=== PATIENT | female | born 1960 | race African-American/Black ===

== ENCOUNTER 2016-10-27 11:29 | Emergency (ER) | payer OTHER ==
[~2016-10-27] VITALS: Ht 162.6 cm; Wt 120.2 kg
[~2016-10-27 11:29] MED LIST: AMOXICILLIN500 M3 PO; AZOR 5-20 MG T1 EACH PO; AZOR 5-40 MG T1 EACH PO; CYCLOBENZAPRINE10 M1 PO; FOLIC ACID1 M1 PO; IBUPROFEN600 M1 PO; NASONEX17 GM NASB; PERCOCET 5-3251 EACH PO; PLAQUENIL200 M1 PO; TRAMADOL HCL50 M1 PO; TRAMADOL50 MG PO; VITAMIN C100 M2 PO
--- NOTE | 2016-10-27 11:54 | ED NEURO DEFICIT/STROKE ---
History of Present Illness General Chief Complaint: General Adult Stated Complaint: SENT BY MD FOR POSSIBILE TIA Source: patient, family, old records Exam Limitations: no limitations Vital Signs & Intake/Output Vital Signs & Intake/Output Vital Signs Date Time Temp Pulse Resp B/P Pulse O2 O2 Flow FiO2 Ox Delivery Rate 10/27 1317 84 18 159/77 99 Room Air 10/27 1141 Room Air 10/27 1132 97.5 89 20 172/105 97 Room Air Allergies Uncoded Allergies: RADIOLOGICAL CONTRAST MEDIA (UNKNOWN 12/19/15) Reconcile Medications Amlodipine Bes/Olmesartan Med (Kevyn 5-40 MG Tablet) 1 EACH TABLET 1 TAB PO DAILY BP (Reported) Amlodipine Bes/Olmesartan Med (Kevyn 5-20 MG Tablet) 1 EACH TABLET 1 TAB PO DAILY HIGH BLOOD PRESSURE Amlodipine Bes/Olmesartan Med (Kevyn 5-20 MG Tablet) 1 EACH TABLET 1 TAB PO DAILY HIGH BLOOD PRESSURE Amoxicillin 500 MG TABLET 1 TAB PO TID EAR INFECTION Ascorbic Acid (Vitamin C) 100 MG TABLET 1 TAB PO DAILY VITAMIN (Reported) Cyclobenzaprine HCl 10 MG TABLET 1 TAB PO Q8P PAIN OR SPASM Folic Acid 1 MG TABLET 1 TAB PO DAILY VITAMIN (Reported) Folic Acid 1 MG TABLET 1 TAB PO DAILY VITAMIN (Reported) Hydroxychlorquine (Plaquenil) 200 MG TABLET 1 TAB PO BID CONNECTIVE TISSUE ( Reported) Ibuprofen 600 MG TABLET 1 TAB PO TID PRN PAIN with food Mometasone Furoate (Nasonex) 17 GM SPRAY.PUMP 2 SPRAY NASB DAILY SINUS CONGESTION Oxycodone HCl/Acetaminophen (Percocet 5-325 MG Tablet) 1 EACH TABLET 1-2 TAB PO Q6P PRN PAIN TRAMADOL HCL (Tramadol) 50 MG TABLET 1 TAB PO Q6P PRN PAIN Tramadol HCl 50 MG TABLET 1 TAB PO Q6P PRN PAIN Triage Note: PT TO ED C/O DIZZINESS X A FEW WEEKS. STATES WHEN IS SHE STANDS UP SHE FEELS A LOUISE TO HER HEAD. PT STATES THIS AM DURING PRAYER WHEN SHE STOOD UP SHE FELT A LOUISE TO HER HEAD AND THEN LOST VISION TO HER RIGHT EYE. VISION HAS SINCE RETURNED. ALSO C/O NECK PAIN. Triage Nurses Notes Reviewed? yes Onset: Gradual Duration: week(s): (8), intermittent, resolved prior to arrival, waxing and waning Timing: recent history Severity: mild, moderate Vision Problem? Yes Glaucoma? No Baseline: alert, oriented x 3 Associated Symptoms: denies HPI: 56-year-old female history of hypertension iron deficiency anemia connective tissue disorder presents to emergency room complaining of intermittent dizziness that lasts a few seconds that comes on only upon standing for the past 2 months however become more frequent over the past 2 weeks. Patient states she was at buddhist this morning when the symptoms occurred again after standing up and she states that she lost vision in her right eye for approximately 15 seconds before completely returning to normal. Patient states she called her primary care physician who advised her to come to the ER. On arrival the patient denies any complaints. She did not take her blood pressure medication yet today. She denies any chest pain shortness of breath. It was no facial droop or difficulty finding words or speaking and no slurred speech no arm or leg weakness numbness or tingling. The patient denies any concerns at this time there is been no fever no chills no headache no change in her mental status per family (SHEILA HOWELL) Past History Travel History Traveled to [place] past 21 day No Medical History Any Pertinent Medical History? see below for history Neurological: migraine EENT: NONE Cardiovascular: hypertension Respiratory: NONE Gastrointestinal: NONE Hepatic: NONE Renal: NONE Musculoskeletal: CONNECTIVE TISSUE DISEASE Psychiatric: NONE Endocrine: NONE Blood Disorders: NONE Cancer(s): NONE Surgical History Surgical History: non-contributory Psychosocial History What is your primary language Burkinan Tobacco Use: Quit >30 days ago ETOH Use: denies use Illicit Drug Use: denies illicit drug use Family History Hx Contributory? No (SHEILA HOWELL) Review of Systems Review of Systems Constitutional: Reports: see HPI. All Other Systems: Reviewed and Negative Comments Review of systems: See HPI, All other systems negative. Constitutional, no chills no fever, no malaise HEENT: no sore throat no congestion, no ear pain Cardiovascular: No chest pain , no palpitation , no orthopnea Skin, no jaundice no rashes, no change in skin Respiratory: No dyspnea no cough no sputum no hemoptysis GI: No nausea no vomiting, no diarrhea, no bloating/constipation : No dysuria Muscle skeletal: No joint pain, no joint swelling, no back pain, no neck pain, Neurologic: No numbness no confusion, no headache Psych: No stress Heme/endocrine: No bruising no bleeding no polyuria Immunology: No lymphadenopathy (SHEILA HOWELL) Physical Exam Physical Exam General Appearance: well developed/nourished, alert, awake Cranial Nerves: normal hearing, normal speech, PERRL Coordination/Gait: normal finger to nose, normal gait Motor/Sensory: no motor/sensory deficits, neg rhomberg Reflexes: 2+: bicep (R), bicep (L), knee (R), knee (L). Comments: Well-developed well-nourished person in no acute distress HEENT: Normal EENT exam; PERRL, EOMI, no nystagmus. HEAD is atraumatic. moist mucous membranes. Neck: Supple, no lymphadenopathy, normal range of motion without pain or tenderness Back: Nontender, no CVA tenderness. Full range of motion Cardiovascular: Regular rate and rhythms no murmurs rubs or gallops, normal JVP Respiratory: Chest nontender.There were no bony deformities, no asymmetry. No respiratory distress. Patient speaking in full complete sentences. Breath sounds clear to auscultation bilaterally: NO W/R/R Abdomen: Soft, nontender nondistended, no appreciable organomegaly. Normal bowel sounds. No rebound/guarding, Extremity: No edema, full range of motion of extremities, normal and equal pulses bilaterally, 5 out of 5 strength noted to bilateral upper and lower extremities Neuro: Alert oriented x3, motor sensory normal, cranial nerves II through XII grossly intact. There were no obvious focal neurologic abnormalities. Skin: No appreciable rash on exposed skin, skin is warm and dry. Psych: Mood and affect is normal, memory and judgment is normal. Core Measures CVA/TIA Diagnosis: No Severe Sepsis Present: No Septic Shock Present: No (SHEILA HOWELL) Progress Differential Diagnosis: drug intoxication, electrolyte imbalance, encephalitis, hypoglycemia, intracranial Hem., intracranial mass/tumor, meningitis, subarachnoid Hem., vertebrobasilar insuff., vASOVAGAL, ELECTROLYTE ABNORMALITY, tia/cva Plan of Care: Orders Procedure Date/time Status MISTAKE 10/27 1237 Active VITAMIN B12 10/27 1158 Complete TROPONIN LEVEL 10/27 1157 Complete MAGNESIUM 10/27 1157 Complete COMPREHENSIVE METABOLIC PANEL 10/27 1157 Complete CBC WITHOUT DIFFERENTIAL 10/27 1157 Complete URINALYSIS 10/27 1139 Complete Laboratory Tests 10/27/16 1255: Vitamin B12 827 10/27/16 1255: Anion Gap 8, Estimated GFR > 60, BUN/Creatinine Ratio 20.0, Glucose 96, Calcium 9.3, Magnesium 1.9, Total Bilirubin 0.4, AST 22, ALT 32, Alkaline Phosphatase 78 , Troponin I < 0.01, Total Protein 7.6, Albumin 4.1, Globulin 3.5, Albumin/ Globulin Ratio 1.2, CBC w Diff NO MAN DIFF REQ, RBC 4.38, MCV 85.1, MCH 27.9, RDW 14.1, MPV 7.5, Gran % 42.6, Lymphocytes % 48.5, Monocytes % 5.5, Eosinophils % 2.5, Basophils % 0.9, Absolute Granulocytes 2.8, Absolute Lymphocytes 3.2, Absolute Monocytes 0.4, Absolute Eosinophils 0.2, Absolute Basophils 0.1, PUBS MCHC 32.8 L 10/27/16 1140: Urine Color YEL, Urine Clarity CLEAR, Urine pH 6.5, Ur Specific Clemons 1.015, Urine Protein NEG, Urine Ketones NEG, Urine Nitrite NEG, Urine Bilirubin NEG, Urine Urobilinogen 0.2, Ur Leukocyte Esterase NEG, Ur Microscopic EXAM NOT REQUIRED, Urine Hemoglobin NEG, Urine Glucose NEG Labs ordered old records reviewed 10/27/2016 1:49:23 PM patient ambulatory around the emergency room with steady gait without reproducible symptoms orthostatics are negative case was discussed with Dr. Del Rio. I discussed the patient relates all of her lab results and CAT scan findings, I discussed with her need for close follow-up with her primary care physician next week to limit caffeine use advised return anytime sooner if her symptoms return, persist or she has any other concerns she feels comfortable this plan I answered all of her questions (TYREL LANGSTON,SHEILA) Diagnostic Imaging: Viewed by Me: CT Scan. Discussed w/RAD: CT Scan. Radiology Impression: PATIENT: LEROY DRAKE PRESENT AGE: 56 PATIENT ACCOUNT NO: [id number] : 60 LOCATION: [facility] ORDERING PHYSICIAN: SHEILA LANGSTON SERVICE DATE: 10/27/16-6155 EXAM TYPE: CAT - CT HEAD WO IV CONTRAST EXAMINATION: CT HEAD WITHOUT CONTRAST CLINICAL INFORMATION: 56-year-old woman with dizziness and vision changes. COMPARISON: 04 / head CT TECHNIQUE: Contiguous axial imaging was performed from the skull base to vertex without intravenous administration of contrast. DLP: 601 mGy-cm. FINDINGS: There is apparent asymmetric hyperdensity in the region of the right transverse sinus that is unchanged in comparison to the prior study and therefore presumably of limited significance. A small focus of hypodensity near the right anterior lentiform nucleus is also unchanged. No intracranial mass, hemorrhage, midline shift, or extra-axial collection is appreciated. The ventricles and sulcal spaces are age appropriate. The paranasal sinuses are well aerated. IMPRESSION: No acute intracranial pathology. DICTATED BY: VERONICA ACE MD DATE/TIME DICTATED:10/27/161309 CHAIN LINK FENCE INSTALLER:VICKEY DATE/TIME TRANSCRIBED:10/27/161309 CONFIDENTIAL, DO NOT COPY WITHOUT APPROPRIATE AUTHORIZATION. <Electronically signed in Other Vendor System> SIGNED BY: VERONICA ACE MD 10/27/16 1316 Initial ED EKG: none (SHEILA HOWELL) Departure Departure Time of Disposition: 1346 Disposition: HOME OR SELF CARE Condition: Stable Clinical Impression Primary Impression: Vasovagal episode Referrals: ANDREW TURNER,LILLIE Bragg (PCP/Family) Additional Instructions: Follow-up with your primary care physician, ensure you are eating regularly throughout the day, limit caffeine use. return with any concerns Departure Forms: Customer Survey General Discharge Information (SHEILA HOWELL) PA/REAL ESTATE ASSET MANAGER Co-Sign Statement Statement: ED Attending supervision documentation- [] I saw and evaluated the patient. I have also reviewed all the pertinent lab results and diagnostic results. I agree with the findings and the plan of care as documented in the PA's/REAL ESTATE ASSET MANAGER's documentation. [X] I have reviewed the ED Record and agree with the PA's/REAL ESTATE ASSET MANAGER's documentation. [] Additions or exceptions (if any) to the PAs/REAL ESTATE ASSET MANAGER's note and plan are summarized below: [] (VINH TURNER,MELISSA)
[2016-10-27 13:13] LABS: ABSOLUTE BASOPHIL COUNT 0.1 /CUMM (0.0-0.2); ABSOLUTE EOSINOPHIL COUNT 0.2 /CUMM (0.0-0.7); ABSOLUTE GRANULOCYTE CT 2.8 /CUMM (1.4-6.5); ABSOLUTE LYMPH COUNT 3.2 /CUMM (1.2-3.4); ABSOLUTE MONOCYTE COUNT 0.4 /CUMM (0.10-0.60); BASOPHIL % 0.9 % (0.0-2.0); EOSINOPHIL % 2.5 % (0-5); GRANULOCYTE % 42.6 % (42.2-75.2); HEMATOCRIT 37.2 % (37-47); MEAN CORPUSCULAR HGB 27.9 PG (27.0-31.0); MEAN CORPUSCULAR HGB CONC 32.8 G/DL (33.0-37.0); MEAN CORPUSCULAR VOLUME 85.1 FL (81.0-99.0); MEAN PLATELET VOLUME 7.5 FL (7.4-10.4); PLATELET COUNT 270 /CUMM (130-400); RBC DISTRIBUTION WIDTH 14.1 % (11.5-14.5); RED BLOOD CELL CT 4.38 /CUMM (4.20-5.40); WHITE BLOOD CELL COUNT 6.6 /CUMM (4.8-10.8)
--- NOTE | 2016-10-27 13:16 | CT SCAN REPORT ---
EXAMINATION: CT HEAD WITHOUT CONTRAST CLINICAL INFORMATION: 56-year-old woman with dizziness and vision changes. COMPARISON: 01/15/[address] TECHNIQUE: Contiguous axial imaging was performed from the skull base to vertex without intravenous administration of contrast. DLP: 601 mGy-cm. FINDINGS: There is apparent asymmetric hyperdensity in the region of the right transverse sinus that is unchanged in comparison to the prior study and therefore presumably of limited significance. A small focus of hypodensity near the right anterior lentiform nucleus is also unchanged. No intracranial mass, hemorrhage, midline shift, or extra-axial collection is appreciated. The ventricles and sulcal spaces are age appropriate. The paranasal sinuses are well aerated. IMPRESSION: No acute intracranial pathology.
[2016-10-27 13:17] VITALS: BP 159/77
== END 2016-10-27 13:53 ==
LOC: ERH 11:29
PROVIDERS: Physician Assistant Medical
DX: R55 Syncope and collapse (principal); D50.9 Iron deficiency anemia, unspecified; I10 Essential (primary) hypertension; Z87.891 Personal history of nicotine dependence
CPT/HCPCS: 81003

== ENCOUNTER 2018-01-20 19:48 | Emergency (ER) | payer OTHER ==
[~2018-01-20] VITALS: Ht 162.6 cm; Wt 131.5 kg
--- NOTE | 2018-01-20 20:37 | ED CARDIAC/CP/PALPITATIONS ---
History of Present Illness General Chief Complaint: General Adult Stated Complaint: CHEST PAIN, SOB, "FLUTTER IN MY STOMACH" Source: patient, old records Exam Limitations: no limitations Vital Signs & Intake/Output Vital Signs & Intake/Output Vital Signs Date Time Temp Pulse Resp B/P B/P Pulse O2 O2 Flow FiO2 Mean Ox Delivery Rate 01/20 2034 98 Room Air 01/20 2003 97.6 79 18 120/80 98 Room Air Allergies Coded Allergies: pineapple (TONGUE NUMBNESS 01/20/18) Uncoded Allergies: RADIOLOGICAL CONTRAST MEDIA (UNKNOWN 12/19/15) Reconcile Medications Amlodipine Bes/Olmesartan Med (Kevyn 5-40 MG Tablet) 1 EACH TABLET 1 TAB PO DAILY BP (Reported) Amlodipine Bes/Olmesartan Med (Kevyn 5-20 MG Tablet) 1 EACH TABLET 1 TAB PO DAILY HIGH BLOOD PRESSURE Amlodipine Bes/Olmesartan Med (Kevyn 5-20 MG Tablet) 1 EACH TABLET 1 TAB PO DAILY HIGH BLOOD PRESSURE Amoxicillin 500 MG TABLET 1 TAB PO TID EAR INFECTION Ascorbic Acid (Vitamin C) 100 MG TABLET 1 TAB PO DAILY VITAMIN (Reported) Cyclobenzaprine HCl 10 MG TABLET 1 TAB PO Q8P PAIN OR SPASM Folic Acid 1 MG TABLET 1 TAB PO DAILY VITAMIN (Reported) Folic Acid 1 MG TABLET 1 TAB PO DAILY VITAMIN (Reported) Hydroxychlorquine (Plaquenil) 200 MG TABLET 1 TAB PO BID CONNECTIVE TISSUE ( Reported) Ibuprofen 600 MG TABLET 1 TAB PO TID PRN PAIN with food Mometasone Furoate (Nasonex) 17 GM SPRAY.PUMP 2 SPRAY NASB DAILY SINUS CONGESTION Oxycodone HCl/Acetaminophen (Percocet 5-325 MG Tablet) 1 EACH TABLET 1-2 TAB PO Q6P PRN PAIN TRAMADOL HCL (Tramadol) 50 MG TABLET 1 TAB PO Q6P PRN PAIN Tramadol HCl 50 MG TABLET 1 TAB PO Q6P PRN PAIN Triage Note: PT TO ED WITH MULTIPLE COMPLAINTS. "HAS BEEN GOING ON FOR A COUPLE OF MONTHS" PT C/O CENTER CHEST TIGHTNESS, FLUTTERING IN HER GROIN "ALL THE TIME", SOB AND TIGHTNESS IN HER THROAT. "I'VE BEEN USING MY PROAIR INAHALER FOR OVER A YEAR BUT NOW IT'S NOT HELPING ME" "I DON'T HAVE ASTHMA , I UST HAVE ALLERGIES ALL YEAR LONG" O2 SAT 98% ON RA. PT SPEAKING NON STOP IN TRIAGE. "I CAN EAT AND DRINK FINE" PT IS 290 LBS. "I JUST CAN'T SWALLOW PILLS" "I HAD A SWALLOW STUDY LAST WEEK BUT THEY GAVE ME THE BARIUM PILLS INSTEAD OF THE LIQUID SO I CHOKED ON THEM" "NOW THEY WANT ME TO HAVE AN ENDOSCOPY" "I HAVE THIS DRY HACKING COUGH" PT MADE HERSELF COUGH IN TRIAGE. "SEE, I CAN'T GET THE STUFF DOWN THERE TO MOVE" "I HAVE TO BREATHE REALLY REALLY DEEP TO GET A GOOD COUGH" VSS. NAD Triage Nurses Notes Reviewed? yes HPI: Patient presents to the emergency department with 2 separate complaints. Her first complaint is chest tightness and a squeezing sensation in her throat. Patient states the symptoms have been intermittent over the past few months however over the past few days the chest tightness has been constant and she intermittently gets a squeezing sensation in her throat. The squeezing sensation lasts just a few minutes before it goes away. There are no aggravating or mitigating factors. There is no radiation which she hasn't. It appears to be unrelated to activity. She rates it at a 4 out of 10. The chest tightness is constant over the past few days it is central. There is no radiation. There are no aggravating or mitigating factors. She rates the tightness at a 3 out of 10. She denies any shortness of breath. She does have a cough which appears to be unrelieved with pro-air. She states that cough is a dry nonproductive cough, she takes a really deep breath and cough really hard and then she is able to get up a little phlegm. There are no fevers or chills. There is no orthopnea or dyspnea on exertion. Her other complaint is a fluttering sensation in her lower abdomen. The symptoms are intermittent. The symptoms appear to started a few days after starting Acetasol line which she was put on for idiopathic intracranial hypertension. She denies any constipation or diarrhea. There is no dysuria. There is no hematuria. She denies any pain in her abdomen is just a fluttering sensation. 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 Past History Travel History Traveled to [place] past 21 day No Medical History Any Pertinent Medical History? see below for history Neurological: migraine EENT: "FLUID IN OPTIC NERVE" Cardiovascular: hypertension, HEART MURMUR Respiratory: USES ALBUTEROL INH FOR ALLERGIES Gastrointestinal: GERD Hepatic: NONE Renal: NONE Musculoskeletal: CONNECTIVE TISSUE DISEASE Psychiatric: NONE Endocrine: NONE Blood Disorders: NONE Cancer(s): NONE Surgical History Surgical History: non-contributory Psychosocial History What is your primary language Faroese Tobacco Use: Quit >30 days ago ETOH Use: denies use Illicit Drug Use: denies illicit drug use Family History Hx Contributory? No Review of Systems Review of Systems Constitutional: Reports: no symptoms. EENTM: Reports: no symptoms. Respiratory: Reports: see HPI, cough. Cardiovascular: Reports: see HPI, chest pain. GI: Reports: see HPI, abdominal pain. Genitourinary: Reports: no symptoms. Musculoskeletal: Reports: no symptoms. Skin: Reports: no symptoms. Neurological/Psychological: Reports: no symptoms. Hematologic/Endocrine: Reports: no symptoms. Immunologic/Allergic: Reports: no symptoms. All Other Systems: Reviewed and Negative Physical Exam Physical Exam General Appearance: well developed/nourished, alert, awake, anxious, mild distress Head: atraumatic, normal appearance Eyes: Bilateral: PERRL, EOMI. Ears, Nose, Throat: normal pharynx, normal ENT inspection, hearing grossly normal Neck: normal inspection, supple, full range of motion Respiratory: normal breath sounds, chest non-tender, no respiratory distress, lungs clear Cardiovascular: regular rate/rhythm, normal peripheral pulses Gastrointestinal: normal bowel sounds, soft, non-tender, no organomegaly Back: normal inspection, normal range of motion Extremities: normal inspection, normal capillary refill, normal range of motion, no edema Neurologic/Psych: no motor/sensory deficits, awake, alert, oriented x 3, normal gait, normal mood/affect Skin: intact, normal color, warm/dry Lymphatic: no anterior cervical darren Core Measures ACS in differential dx? No CVA/TIA Diagnosis No Sepsis Present: No Sepsis Focused Exam Completed? No Progress Differential Diagnosis: AMI, atrial fibrillation, cholecystitis, costochondritis , hyperthyroid, musculoskeletal pain, myocarditis, pericarditis, pneumonia, pneumothorax Plan of Care: Orders Procedure Date/time Status URINALYSIS 01/21 2036 Active TROPONIN LEVEL 01/21 2036 Complete MAGNESIUM 01/21 2036 Complete COMPREHENSIVE METABOLIC PANEL 01/21 2036 Complete CBC WITHOUT DIFFERENTIAL 04/30 2036 Complete EKG 01/21 1952 Active Laboratory Tests 01/20/182049: Anion Gap 11, Estimated GFR > 60, BUN/Creatinine Ratio 13.3, Glucose 96, Calcium 9.3, Magnesium 2.2, Total Bilirubin 0.4, AST 20, ALT 27, Alkaline Phosphatase 65 , Troponin I < 0.01, Total Protein 7.7, Albumin 4.4, Globulin 3.3, Albumin/ Globulin Ratio 1.3, CBC w Diff MAN DIFF ORDERED, RBC 4.28, MCV 86.4, MCH 27.7, MCHC 32.0 L, RDW 14.0, MPV 7.6, Gran % 42.0 L, Lymphocytes % 47.4, Monocytes % 7.2, Eosinophils % 2.6, Basophils % 0.8, Absolute Granulocytes 3.8, Segmented Neutrophils 43, Absolute Lymphocytes 4.3 H, Lymphocytes 45, Monocytes 8, Absolute Monocytes 0.6, Eosinophils 3, Absolute Eosinophils 0.2, Basophils 1, Absolute Basophils 0.1, Platelet Estimate ADEQUATE, Hypochromic-Microcytic 1+, Anisocytosis 1+ Diagnostic Imaging: Viewed by Me: Radiology Read, CT Scan. Discussed w/RAD: Radiology Read, CT Scan. Radiology Impression: PATIENT: LEROY DRAKE PRESENT AGE: 57 PATIENT ACCOUNT NO: [id number] : 60 LOCATION: [facility] ORDERING PHYSICIAN: Taz Dominguez MD SERVICE DATE: 01/20/18 EXAM TYPE: CAT - CT ABD & PELVIS W/O IV CONTRAS EXAMINATION: CT ABDOMEN AND PELVIS WITHOUT CONTRAST CLINICAL INFORMATION: Left lower quadrant pain. COMPARISON: CT scan abdomen pelvis 01/15/2016 TECHNIQUE: Multidetector volumetric imaging was performed from the superior aspect of the liver through the pubic symphysis. Sagittal and coronal reformatted images were obtained on the technologist's workstation. DLP: 1406.98 mGy-cm FINDINGS: LUNG BASES: The visualized lung bases are unremarkable. LIVER, GALLBLADDER, AND BILIARY TREE: The liver is normal in size, shape, and attenuation. No focal hepatic lesion or biliary ductal dilatation is present. The gallbladder is unremarkable with no evidence of radiopaque gallstones, gallbladder wall thickening, or obvious pericholecystic inflammatory changes. PANCREAS: Unremarkable. SPLEEN: Unremarkable. ADRENAL GLANDS: Unremarkable. KIDNEYS AND URETERS: The kidneys are normal in size, shape , and attenuation. No hydronephrosis, hydroureter, or calculi seen. No perinephric stranding. BLADDER: Unremarkable. GASTROINTESTINAL TRACT: The small and large bowel are unremarkable. No diverticula. No bowel wall thickening or edema. Moderate amount of scattered stool in the colon. The appendix is normal. Small bowel loops are unremarkable. There is a surgical clip in the right lower quadrant ABDOMINAL WALL: No significant hernia is appreciated. LYMPH NODES: Normal. VASCULAR: Unremarkable. PELVIC VISCERA: Unremarkable. OSSEOUS STRUCTURES : Degenerative spondylosis spine with multilevel endplate spurring and disc height narrowing and facet joint arthrosis. Vacuum disc phenomena L4-L5 and L2- L3. IMPRESSION: No acute abnormality CT scan abdomen pelvis. DICTATED BY: Noel Hale MD DATE/TIME DICTATED:01/20/182236 DIE ASSEMBLER:VICKEY DATE/ TIME TRANSCRIBED:01/20/182236 CONFIDENTIAL, DO NOT COPY WITHOUT APPROPRIATE AUTHORIZATION. <Electronically signed in Other Vendor System> SIGNED BY: Noel Hale MD 01/20/182244 CXR Impression: PATIENT: LEROY DRAKE PRESENT AGE : 57 PATIENT ACCOUNT NO: [id number] : 60 LOCATION: [facility] ORDERING PHYSICIAN: Taz Dominguez MD SERVICE DATE: 01/20/18 EXAM TYPE: RAD - XRY-CHEST XRAY, TWO VIEWS EXAMINATION: XR CHEST CLINICAL INFORMATION: Cough. COMPARISON: Chest x-ray from 09/24/2012. TECHNIQUE: 2 views of the chest were obtained. FINDINGS: No airspace opacities or pleural effusions are seen. The cardiomediastinal silhouette is normal. No acute osseous abnormality is seen. IMPRESSION: Clear lungs. No acute process. DICTATED BY: Taz Ko MD DATE /TIME DICTATED:01/20/182121 DIE ASSEMBLER:VICKEY DATE/TIME TRANSCRIBED: 01/20/182121 CONFIDENTIAL, DO NOT COPY WITHOUT APPROPRIATE AUTHORIZATION. < Electronically signed in Other Vendor System> SIGNED BY: Taz Ko MD 01/20/182126 Initial ED EKG: NSR, SR, FIRST DEGREE HB, NO ISCHEMIC CHANGES, NO CHANGE FROM PRIOR Prior EKG: unchanged Comments: CHEST TIGHTNESS HAS BEEN CONSTANT FOR THE PAST FEW DAYS. SHE DOES NOT NEED SERIAL ENZYMES. Results have been discussed with the patient and flushed And answered. Patient feels comfortable going home. Departure Departure Disposition: HOME OR SELF CARE Condition: Stable Clinical Impression Primary Impression: Chest pain Secondary Impressions: Lower abdominal pain, unspecified Referrals: Michael TURNER,Maira Bragg (PCP/Family) Ravi TURNER,Lanre Sewell Additional Instructions: FOLLOW UP WITH DR. RAVI CAMACHO IF SYMPTOMS WORSEN OR FOR ANY CONCERNS Departure Forms: Customer Survey General Discharge Information Critical Care Note Critical Care Note Critical Care Time: non-applicable
[2018-01-20 21:02] LABS: ABSOLUTE BASOPHIL COUNT 0.1 /CUMM (0.0-0.2); ABSOLUTE EOSINOPHIL COUNT 0.2 /CUMM (0.0-0.7); ABSOLUTE GRANULOCYTE CT 3.8 /CUMM (1.4-6.5); ABSOLUTE LYMPH COUNT 4.3 /CUMM (1.2-3.4); ABSOLUTE MONOCYTE COUNT 0.6 /CUMM (0.10-0.60); BASOPHIL % 0.8 % (0.0-2.0); EOSINOPHIL % 2.6 % (0-5); HEMATOCRIT 36.9 % (37-47); MEAN CORPUSCULAR HGB 27.7 PG (27.0-31.0); MEAN CORPUSCULAR VOLUME 86.4 FL (81.0-99.0); MEAN PLATELET VOLUME 7.6 FL (7.4-10.4); PLATELET COUNT 287 /CUMM (130-400); RED BLOOD CELL CT 4.28 /CUMM (4.20-5.40)
--- NOTE | 2018-01-20 21:27 | RADIOLOGY REPORT ---
EXAMINATION: XR CHEST CLINICAL INFORMATION: Cough. COMPARISON: Chest x-ray from 09/24/2012. TECHNIQUE: 2 views of the chest were obtained. FINDINGS: No airspace opacities or pleural effusions are seen. The cardiomediastinal silhouette is normal. No acute osseous abnormality is seen. IMPRESSION: Clear lungs. No acute process.
--- NOTE | 2018-01-20 22:45 | CT SCAN REPORT ---
EXAMINATION: CT ABDOMEN AND PELVIS WITHOUT CONTRAST CLINICAL INFORMATION: Left lower quadrant pain. COMPARISON: CT scan abdomen pelvis 01/15/2016 TECHNIQUE: Multidetector volumetric imaging was performed from the superior aspect of the liver through the pubic symphysis. Sagittal and coronal reformatted images were obtained on the technologist's workstation. DLP: 1406.98 mGy-cm FINDINGS: LUNG BASES: The visualized lung bases are unremarkable. LIVER, GALLBLADDER, AND BILIARY TREE: The liver is normal in size, shape, and attenuation. No focal hepatic lesion or biliary ductal dilatation is present. The gallbladder is unremarkable with no evidence of radiopaque gallstones, gallbladder wall thickening, or obvious pericholecystic inflammatory changes. PANCREAS: Unremarkable. SPLEEN: Unremarkable. ADRENAL GLANDS: Unremarkable. KIDNEYS AND URETERS: The kidneys are normal in size, shape, and attenuation. No hydronephrosis, hydroureter, or calculi seen. No perinephric stranding. BLADDER: Unremarkable. GASTROINTESTINAL TRACT: The small and large bowel are unremarkable. No diverticula. No bowel wall thickening or edema. Moderate amount of scattered stool in the colon. The appendix is normal. Small bowel loops are unremarkable. There is a surgical clip in the right lower quadrant ABDOMINAL WALL: No significant hernia is appreciated. LYMPH NODES: Normal. VASCULAR: Unremarkable. PELVIC VISCERA: Unremarkable. OSSEOUS STRUCTURES: Degenerative spondylosis spine with multilevel endplate spurring and disc height narrowing and facet joint arthrosis. Vacuum disc phenomena L4-L5 and L2-L3. IMPRESSION: No acute abnormality CT scan abdomen pelvis.
[2018-01-20 23:07] VITALS: BP 126/87
[2018-01-20] MEDS ORDERED: PREDNISONE10 M2 PO (23:07)
== END 2018-01-20 23:09 ==
LOC: ERH 19:48
PROVIDERS: Emergency Medicine
DX: R07.89 Other chest pain (principal); R10.30 Lower abdominal pain, unspecified
CPT/HCPCS: 71046; 74176; 93005; 93010